=== PATIENT | female | born 2000 | race African-American/Black ===

== ENCOUNTER 2022-10-15 12:04 | Emergency (ER) | payer MEDICAID ==
[~2022-10-15] VITALS: Ht 162.6 cm; Wt 56.0 kg
[2022-10-15] MEDS ORDERED: IBUPROFEN 400MG TABLET PO ONE (14:45)
[2022-10-15 15:22] VITALS: BP 107/64
== END 2022-10-15 15:29 | disposition home or self-care (01) ==
LOC: ER 12:04
DX: S63.91XA Sprain of unspecified part of right wrist and hand, initial encounter (principal); V43.62XA Car passenger injured in collision with other type car in traffic accident, initial encounter; Y93.89 Activity, other specified; Y92.488 Other paved roadways as the place of occurrence of the external cause
CPT/HCPCS: 99281